=== PATIENT | female | born 1985 | race Native Hawaiian/Other Pacific Islander ===

== ENCOUNTER 2020-05-04 16:42 | Emergency (ER) | payer MEDICAID ==
[~2020-05-04] VITALS: Ht 180.3 cm; Wt 98.0 kg
[2020-05-04] MEDS: IBUPROFEN 800 MG TAB PO ONE (17:27)
[2020-05-04 17:30] VITALS: BP 142/105
== END 2020-05-04 17:38 | disposition home or self-care (01) ==
LOC: ER 16:42
DX: L30.1 Dyshidrosis [pompholyx] (principal); L01.00 Impetigo, unspecified

== ENCOUNTER 2020-05-28 14:52 | Emergency (ER) | payer MEDICAID ==
[~2020-05-28] VITALS: Ht 177.8 cm; Wt 99.3 kg
[2020-05-28 16:44] VITALS: BP 141/98
[2020-05-28] MEDS ORDERED: methylPREDNISolone SOD SUCC 125 MG/2 ML VL IM ONE (17:30)
[2020-05-28] MEDS ORDERED: diphenhdrAMINE HCL 25 MG CAP PO ONE (17:30)
== END 2020-05-28 18:05 | disposition home or self-care (01) ==
LOC: ER 14:52
DX: B86 Scabies (principal); N39.0 Urinary tract infection, site not specified
CPT/HCPCS: 81002; 96372; 99283; J2930